=== PATIENT | female | born 1985 | race African-American/Black ===

== ENCOUNTER 2018-03-08 11:54 | Emergency (ER) | payer SELFPAY ==
[~2018-03-08] VITALS: Ht 167.6 cm; Wt 117.9 kg
[2018-03-08 12:05] VITALS: BP 155/99
== END 2018-03-08 13:48 | disposition home or self-care (01) ==
LOC: ER 11:54
DX: O34.11 Maternal care for benign tumor of corpus uteri, first trimester (principal); Z3A.01 Less than 8 weeks gestation of pregnancy
CPT/HCPCS: 36415; 76801; 81002; 81025; 84702

== ENCOUNTER 2018-03-12 21:57 | Emergency (ER) | payer SELFPAY ==
[~2018-03-12] VITALS: Ht 167.6 cm; Wt 117.9 kg
[2018-03-12 22:17] VITALS: BP 131/84
[2018-03-13] MEDS ORDERED: SODIUM CHLORIDE 0.9% 1,000 ML IVB ONE (02:35)
[2018-03-13 03:04] LABS: Urine Amorphous Crystal FEW /hpf (None Seen); Urine Bacteria FEW /hpf (None Seen); Urine Blood Negative /uL (Negative); Urine Mucus FEW (None Seen); Urine Specific Gravity 1.021 (1.001-1.035); Urine WBC 3 /hpf (0 - 5)
== END 2018-03-13 06:27 | disposition left against medical advice (07) ==
LOC: ER 22:01
DX: O46.91 Antepartum hemorrhage, unspecified, first trimester (principal); O26.891 Other specified pregnancy related conditions, first trimester; R10.9 Unspecified abdominal pain; Z3A.01 Less than 8 weeks gestation of pregnancy
CPT/HCPCS: 81001

== ENCOUNTER 2018-09-25 02:20 | Observation (INO) | payer MEDICAID ==
[2018-09-25] MEDS ORDERED: LABE300T3 PO (03:55)
[2018-09-25] MEDS ORDERED: PREN-153 OR (03:56)
== END 2018-09-25 03:42 | disposition home or self-care (01) | DRG 566 ==
LOC: LDRP 02:20
PROVIDERS: ADMIT Obstetrics & Gynecology; ATTEND Obstetrics & Gynecology
DX: O00.01 Abdominal pregnancy with intrauterine pregnancy (principal); Z3A.35 35 weeks gestation of pregnancy
CPT/HCPCS: 59025; 81002; G0378

== ENCOUNTER 2021-01-03 06:09 | Emergency (ER) | payer MEDICAID ==
[~2021-01-03] VITALS: Ht 167.6 cm; Wt 134.3 kg
[~2021-01-03 06:09] MED LIST: LABE300T3 PO; PREN1TAB71 OR
[2021-01-03 07:15] LABS: Basophils # (auto) 0.1 10 ^3/uL (0-0.2); Basophils % (auto) 0.5 % (0.0-2.0); Mean Corpuscular Hgb Conc. 32.3 g/dL (32.0-36.0)
[2021-01-03 07:18] LABS: Eosinophils # (auto) 0.1 10 ^3/uL (0-0.8); Hematocrit 37.3 % (36.0-46.0); Lymphocytes # (auto) 4.1 10 ^3/uL (0.4-5.4); Lymphocytes % (auto) 37.7 % (10.0-50.0); Mean Corpuscular Hemoglobin 22.5 pg (28.0-32.0); Monocytes # (auto) 0.6 10 ^3/uL (0-1.3); Monocytes % (auto) 5.1 % (0.0-12.0); Neutrophils # (auto) 6.1 10 ^3/uL (1.6-8.6); Neutrophils % (auto) 55.7 % (37.0-80.0); Nucleated Red Blood Cells % 0.1 %; Red Blood Cells 5.34 10^6/uL (4.0-5.20); Red Cell Distribution Width 18.1 % (11.8-14.3); White Blood Cell 10.9 10^3/uL (4.4-10.8)
[2021-01-03 07:23] LABS: Mean Corpuscular Volume 70.2 fL (80.0-100.0)
[2021-01-03 07:32] LABS: Albumin 3.2 g/dL (3.4-5.0); Calcium 9.6 mg/dL (8.5-10.1); Potassium 4.2 mmol/L (3.5-5.1)
[2021-01-03 07:35] LABS: BUN/Creatinine Ratio 18.8; Bilirubin, Total 0.2 mg/dL (0.2-1.0); Total Protein 7.7 g/dL (6.4-8.2)
[2021-01-03 08:02] LABS: Urine Bacteria NONE SEEN /hpf (None Seen); Urine Blood 1+ /uL (Negative); Urine Specific Gravity 1.022 (1.001-1.035); Urine WBC 1 /hpf (0 - 5)
[2021-01-03 09:40] VITALS: BP 157/90
== END 2021-01-03 09:45 | disposition home or self-care (01) ==
LOC: ER 06:09
DX: O23.41 Unspecified infection of urinary tract in pregnancy, first trimester (principal); N39.0 Urinary tract infection, site not specified; Z79.899 Other long term (current) drug therapy; Z3A.08 8 weeks gestation of pregnancy
CPT/HCPCS: 36415; 76801; 80053; 81001; 81025; 84702; 85025